=== PATIENT | female | born 1955 | race Caucasian/White ===

== ENCOUNTER 2018-01-14 01:01 | Inpatient (IN) | payer OTHER ==
[2018-01-14 01:39] LABS: ADD MAN DIFF? NO
[2018-01-14 01:41] LABS: BASOPHILS % 0.4 % (0.0-2.0); EOSINOPHILS # 0.3 10^3/ul (0.0-0.5); EOSINOPHILS % 2.9 % (0.0-7.0); HEMATOCRIT 41.9 % (37.0-47.0); HEMOGLOBIN 13.9 g/dl (12.0-16.0); LYMPHOCYTES # 3.7 10^3/ul (0.8-2.9); LYMPHOCYTES % 39.8 % (15.0-51.0); MEAN CORPUSCULAR HGB CONC 33.2 g/dl (32.0-37.0); MEAN CORPUSCULAR VOLUME 90.3 fl (82.0-101.0); MEAN PLATELET VOLUME 9.9 fl (7.4-10.4); MONOCYTE # 0.9 10^3/ul (0.3-0.9); MONOCYTES % 9.3 % (0.0-11.0); NEUTROPHIL # 4.4 10^3/ul (1.6-7.5); NEUTROPHILS % 47.2 % (39.0-77.0); PLATELET COUNT 298 10^3/UL (140-415); RED BLOOD COUNT 4.64 10^6/ul (4.20-5.40); RED CELL DISTRIBUTION WIDTH 12.7 % (11.5-14.5)
[2018-01-14 01:41] LABS: WHITE BLOOD COUNT 9.3 10^3/ul (4.8-10.8)
[2018-01-14] MEDS: ALPRAZOLAM 1 MG TAB PO (01:51)
[2018-01-14] MEDS: ASPIRIN 81 MG TAB PO (01:51)
[2018-01-14 02:26] LABS: ALANINE AMINOTRANSFERASE 39 IU/L (13-69); ALBUMIN 4.3 g/dl (3.3-4.9); ALBUMIN/GLOBULIN RATIO 1.22; ALKALINE PHOSPHATASE 61 IU/L (42-121); ANION GAP 15 (8-16); ASPARTATE AMINO TRANSFERASE 28 IU/L (15-46); BILIRUBIN,INDIRECT 0.1 mg/dl (0-1.1); BILIRUBIN,TOTAL 0.1 mg/dl (0.2-1.3); BLOOD UREA NITROGEN 14 mg/dl (7-20); CALCIUM 9.6 mg/dl (8.4-10.2); CARBON DIOXIDE 27 mmol/L (21-31); CHLORIDE 107 mmol/L (97-110); CREATININE 1.09 mg/dl (0.44-1.00); GLUCOSE 93 mg/dl (70-220); LIPASE 217 U/L (23-300); POTASSIUM 3.4 mmol/L (3.5-5.1); SODIUM 146 mmol/L (135-144); TOTAL PROTEIN 7.8 g/dl (6.1-8.1)
[2018-01-14 02:37] LABS: B-TYPE NATRIURETIC PEPTIDE 43 PG/ML (0-125)
[2018-01-14 02:44] LABS: TROPONIN-I < 0.012 ng/ml (0.00-0.12)
[2018-01-14] MEDS ORDERED: NITROGLYCERIN (SL) 0.4 MG TAB SL (06:30)
[2018-01-14] MEDS ORDERED: HYDROCODONE/APAP (5/325) TAB PO (06:30)
[2018-01-14] MEDS ORDERED: NACL 0.9% 3 ML SYG IV (06:30)
[2018-01-14] MEDS ORDERED: morphine 2 MG INJ IV (06:30)
[2018-01-14] MEDS ORDERED: ONDANSETRON 4 MG INJ IV (06:30)
[2018-01-14] MEDS: INSULIN ASPART [NOVOLOG] 3 ML PEN SC ×2 (08:27→12:35)
[2018-01-14] MEDS: LOSARTAN 50 MG TAB PO (08:28)
[2018-01-14] MEDS: metFORMIN 500 MG TAB PO (08:29)
[2018-01-14] MEDS ORDERED: GLUCOSE GEL 15 GRAM TUBE PO ×2 (08:30)
[2018-01-14] MEDS ORDERED: GLUCOSE GEL 15 GRAM TUBE BUCCAL (08:30)
[2018-01-14] MEDS ORDERED: DEXTROSE 50% 50 ML SYRINGE IV ×2 (08:30)
[2018-01-14] MEDS ORDERED: GLUCAGON 1 MG INJ IM (08:30)
[2018-01-14] MEDS ORDERED: NITROGLYCERIN 0.4 MG/HR PATCH TRANSDERM (09:00)
[2018-01-14] MEDS: CYANOCOBALAMIN 100 MCG TAB PO (09:33)
[2018-01-14] MEDS: DOCUSATE SODIUM 100 MG CAP PO (09:33)
[2018-01-14] MEDS: BUPROPION (XL) 150 MG TAB PO (09:33)
[2018-01-14] MEDS: NITROGLYCERIN 0.2 MG/HR PATCH TRANSDERM (09:33)
[2018-01-14 09:54] LABS: HEMOGLOBIN A1C 5.8 % (0-5.9)
[2018-01-14 09:56] LABS: CHOLESTEROL 151 mg/dl (100-200)
[2018-01-14 09:56] LABS: CHOL/HDL RATIO 2.9 RATIO; HDL CHOLESTEROL 52 mg/dl (35-98); LDL CHOLESTEROL,CALCULATED 74 mg/dl; TRIGLYCERIDES 127 mg/dl (0-149)
[2018-01-14] MEDS: DEXTROSE 5%-0.45% NACL 1,000 ML IV (11:02)
[2018-01-14 12:13] LABS: TROPONIN-I < 0.012 ng/ml (0.00-0.12)
[2018-01-14] MEDS ORDERED: REGADENOSON 0.4 MG/5 ML SYG (14:15)
[2018-01-14] MEDS: Insulin NOVOLOG SS MILD Algorithm (SS with meals and bedtime) SC ×2 (17:05→20:53)
[2018-01-14] MEDS ORDERED: INSULIN ASPART [NOVOLOG] 3 ML PEN SC (17:05)
[2018-01-14 19:21] LABS: TROPONIN-I < 0.012 ng/ml (0.00-0.12)
[2018-01-14] MEDS: ATORVASTATIN 80 MG TAB PO (20:48)
[2018-01-14] MEDS: ACETAMINOPHEN 325 MG TAB PO (20:48)
[2018-01-14] MEDS ORDERED: ZOLPIDEM 5 MG TAB PO (21:00)
[2018-01-15] MEDS: ACCU-CHEK XX (02:00)
[2018-01-15 06:03] LABS: ADD MAN DIFF? NO
[2018-01-15 06:10] LABS: BASOPHILS % 0.4 % (0.0-2.0); EOSINOPHILS # 0.2 10^3/ul (0.0-0.5); EOSINOPHILS % 2.7 % (0.0-7.0); HEMATOCRIT 38.3 % (37.0-47.0); HEMOGLOBIN 12.5 g/dl (12.0-16.0); LYMPHOCYTES # 2.5 10^3/ul (0.8-2.9); LYMPHOCYTES % 31.4 % (15.0-51.0); MEAN CORPUSCULAR HEMOGLOBIN 29.6 pg (29.0-33.0); MEAN CORPUSCULAR HGB CONC 32.6 g/dl (32.0-37.0); MEAN CORPUSCULAR VOLUME 90.5 fl (82.0-101.0); MEAN PLATELET VOLUME 10.1 fl (7.4-10.4); MONOCYTE # 0.7 10^3/ul (0.3-0.9); MONOCYTES % 8.2 % (0.0-11.0); NEUTROPHIL # 4.6 10^3/ul (1.6-7.5); NEUTROPHILS % 56.8 % (39.0-77.0); PLATELET COUNT 270 10^3/UL (140-415); RED BLOOD COUNT 4.23 10^6/ul (4.20-5.40); RED CELL DISTRIBUTION WIDTH 12.7 % (11.5-14.5)
[2018-01-15 06:10] LABS: WHITE BLOOD COUNT 8.1 10^3/ul (4.8-10.8)
[2018-01-15 06:33] LABS: ANION GAP 15 (8-16); BLOOD UREA NITROGEN 13 mg/dl (7-20); CALCIUM 8.9 mg/dl (8.4-10.2); CARBON DIOXIDE 24 mmol/L (21-31); CHLORIDE 107 mmol/L (97-110); CREATININE 0.81 mg/dl (0.44-1.00); GLUCOSE 118 mg/dl (70-220); PHOSPHORUS 3.1 mg/dl (2.5-4.9); SODIUM 142 mmol/L (135-144)
[2018-01-15] MEDS: Insulin NOVOLOG SS MILD Algorithm (SS with meals and bedtime) SC ×2 (07:05→12:08)
[2018-01-15] MEDS: ACETAMINOPHEN 325 MG TAB PO (08:47)
[2018-01-15] MEDS: NITROGLYCERIN 0.2 MG/HR PATCH TRANSDERM (08:47)
[2018-01-15] MEDS: LOSARTAN 50 MG TAB PO (08:48)
[2018-01-15] MEDS: ASPIRIN 81 MG TAB PO (08:48)
[2018-01-15] MEDS: CYANOCOBALAMIN 100 MCG TAB PO (08:48)
[2018-01-15] MEDS: BUPROPION (XL) 150 MG TAB PO (08:48)
[2018-01-15] MEDS: metFORMIN 500 MG TAB PO (08:48)
[2018-01-15] MEDS: DOCUSATE SODIUM 100 MG CAP PO (08:48)
== END 2018-01-15 15:40 | disposition home or self-care (01) | DRG 313 ==
LOC: E/R 01:01 → MS3 02:40
DX: R07.9 Chest pain, unspecified (principal); I25.2 Old myocardial infarction; Z95.5 Presence of coronary angioplasty implant and graft; E87.6 Hypokalemia; E11.9 Type 2 diabetes mellitus without complications; I10 Essential (primary) hypertension; E66.9 Obesity, unspecified; Z68.38 Body mass index [BMI] 38.0-38.9, adult; R53.81 Other malaise
CPT/HCPCS: 36415; 71045; 78452; 80048; 80053; 80061; 82962; 83036; 83690; 83735; 83880; 84100; 84484; 85025; 93005; 93017; 93306; 99285-25